=== PATIENT | male | born 1960 | race Hispanic/Latino ===

== ENCOUNTER 2021-05-10 04:44 | Inpatient (IN) | payer BC, OTHER ==
[2021-05-10 05:36] VITALS: BMI 27.0
[2021-05-10] MEDS ORDERED: Nitroglycerin 0.4 MG TAB (25 Tab Bottle) SL PRN (05:36)
[2021-05-10] MEDS ORDERED: Dextrose 50% Abboject 50 ML SYRINGE SLOW IVP PRN (05:45)
[2021-05-10] MEDS ORDERED: Heparin 25,000 units/D5W 500 ML IVPB SCH (05:45)
[2021-05-10] MEDS ORDERED: Heparin 10,000 UNITS/ 10 ML VIAL SLOW IVP SCH (05:45)
[2021-05-10] MEDS ORDERED: Dextrose 5% in Water 1,000 ML IV PRN (05:45)
[2021-05-10 06:20] LABS: #Basophils 0.1 10x3/uL (0.0-0.2); #Eosinphils 0.4 10x3/uL (0.0-0.5); #Monocytes 0.8 10x3/uL (0.0-1.1); %Basophils 0.6 % (0.0-2.0); %Eosinophils 3.9 % (0.0-6.0); %Lymphocytes 35.9 % (18.0-47.0); %Monocytes 8.5 % (0.0-10.0); %Neutrophils 50.7 % (40.0-75.0); Hemoglobin 15.5 g/dL (13.5-17.5); Mean Corpuscular HGB CONC 31.8 g/dL (32.0-36.0); Mean Corpuscular Hemoglobin 26.1 pg (27.0-33.0); Mean Platelet Volume 8.8 fl (7.4-10.4); Platelet Count 241 10x3/uL (150-450); RBC Distribution Width 14.8 % (11.5-14.5); Red Blood Cell (RBC) Count 5.94 10x6/uL (4.32-5.72); White Blood Cell (WBC) Count 9.8 10x3/uL (3.5-10.5)
[2021-05-10 06:37] LABS: Anion Gap 18 mmol/L (10-20); BUN (Urea Nitrogen) 18 mg/dL (8.4-25.7); Calc. Creatinine Clearance 96 mL/min (70-130); Calcium 9.4 mg/dL (7.8-10.44); Carbon Dioxide 19 mmol/L (22-29); Cardiac Risk 3.3 (Less than 4.5); Chloride 108 mmol/L (98-107); Cholesterol 104 mg/dl (< 200 Desired); Glucose 160 mg/dL (70-105); HDL Cholesterol 32 mg/dL (>60 Neg Risk); INR-International Normal Ratio 0.9; LDL Cholesterol, Calculated 24 mg/dL; Magnesium 1.9 mg/dL (1.6-2.6); PTT 24.2 sec (22.0-33.0); Potassium 4.2 mmol/L (3.5-5.1); Prothrombin Time 10.5 sec (9.5-12.1); Sodium 141 mmol/L (136-145); Triglycerides 242 mg/dL (Less than 150)
[2021-05-10] MEDS: Sodium Chloride 0.9% 1,000 ML IV SCH ×2 (06:47→20:20)
[2021-05-10] MEDS: Nitroglycerin 2% Ointment 1 INCH/1 GM Packet TOP SCH ×3 (06:47→18:20)
[2021-05-10 06:49] LABS: Troponin I Less than 0.010 ng/mL (< 0.028)
[2021-05-10] MEDS: Enoxaparin Sodium 40 MG/0.4 ML SYRINGE SC SCH (07:51)
[2021-05-10] MEDS: Lantus 1000 UNITS/10 ML VIAL SC SCH (07:51)
[2021-05-10 08:51] LABS: SARS-CoV-2 NAA Rapid Test Not Detected (NotDetected)
[2021-05-10 09:13] LABS: Troponin I Less than 0.010 ng/mL (< 0.028)
[2021-05-10 09:24] LABS: Hemoglobin A1c 9.9 % (4.0-6.0)
[2021-05-10] MEDS: Carvedilol 3.125 MG TAB PO SCH ×3 (09:34→17:14)
[2021-05-10] MEDS: Clopidogrel Bisulfate 75 MG TAB PO SCH (09:34)
[2021-05-10] MEDS: Aspirin 325 MG TAB PO SCH (09:34)
[2021-05-10] MEDS: HumaLOG 300 UNITS/3 ML VIAL SC PRN ×2 (16:46→20:21)
[2021-05-10] MEDS: Colchicine 0.6 MG TAB PO SCH ×2 (20:20→20:32)
[2021-05-11] MEDS: Nitroglycerin 2% Ointment 1 INCH/1 GM Packet TOP SCH ×5 (00:49→23:20)
[2021-05-11 04:47] LABS: Anion Gap 14 mmol/L (10-20); BUN (Urea Nitrogen) 17 mg/dL (8.4-25.7); Calc. Creatinine Clearance 98 mL/min (70-130); Carbon Dioxide 20 mmol/L (22-29); Chloride 111 mmol/L (98-107); Glucose 116 mg/dL (70-105); Magnesium 2.1 mg/dL (1.6-2.6); Potassium 4.2 mmol/L (3.5-5.1); Sodium 141 mmol/L (136-145)
[2021-05-11] MEDS: Carvedilol 3.125 MG TAB PO SCH ×2 (05:37→16:39)
[2021-05-11] MEDS: Aspirin 325 MG TAB PO SCH (05:37)
[2021-05-11] MEDS: Clopidogrel Bisulfate 75 MG TAB PO SCH (05:37)
[2021-05-11] MEDS: Enoxaparin Sodium 40 MG/0.4 ML SYRINGE SC SCH (09:30)
[2021-05-11] MEDS: Lantus 1000 UNITS/10 ML VIAL SC SCH (09:31)
[2021-05-11] MEDS: Colchicine 0.6 MG TAB PO SCH ×2 (09:42→20:45)
[2021-05-11] MEDS: Sodium Chloride 0.9% 1,000 ML IV SCH ×2 (11:45→22:40)
[2021-05-11] MEDS: HumaLOG 300 UNITS/3 ML VIAL SC PRN ×2 (16:39→20:45)
[2021-05-12 04:59] LABS: Anion Gap 12 mmol/L (10-20); BUN (Urea Nitrogen) 17 mg/dL (8.4-25.7); Calc. Creatinine Clearance 92 mL/min (70-130); Calcium 8.5 mg/dL (7.8-10.44); Carbon Dioxide 22 mmol/L (22-29); Chloride 112 mmol/L (98-107); Glucose 138 mg/dL (70-105); Potassium 4.3 mmol/L (3.5-5.1); Sodium 142 mmol/L (136-145)
[2021-05-12] MEDS: Clopidogrel Bisulfate 75 MG TAB PO SCH (06:33)
[2021-05-12] MEDS: Carvedilol 3.125 MG TAB PO SCH ×2 (06:33→17:50)
[2021-05-12] MEDS: Nitroglycerin 2% Ointment 1 INCH/1 GM Packet TOP SCH ×3 (06:33→17:50)
[2021-05-12] MEDS: Aspirin 325 MG TAB PO SCH (06:33)
[2021-05-12] MEDS: Enoxaparin Sodium 40 MG/0.4 ML SYRINGE SC SCH (09:18)
[2021-05-12] MEDS: Colchicine 0.6 MG TAB PO SCH ×2 (09:18→20:15)
[2021-05-12] MEDS: Lantus 1000 UNITS/10 ML VIAL SC SCH (09:18)
[2021-05-12] MEDS ORDERED: Heparin 10,000 UNITS/ 10 ML VIAL ONE (09:23)
[2021-05-12] MEDS ORDERED: Adenosine 6 MG/2 ML VIAL ONE (09:23)
[2021-05-12] MEDS ORDERED: Nitroglycerin 50 MG/250 ML BOT 250 ML ONE (09:23)
[2021-05-12] MEDS ORDERED: Lidocaine 1% (PF) 30 ML VIAL ONE (09:24)
[2021-05-12] MEDS ORDERED: Fentanyl 100 MCG/2 ML VIAL ONE (09:53)
[2021-05-12] MEDS ORDERED: Midazolam HCl 2 mg/2 ml Vial ONE ×2 (09:53→10:54)
[2021-05-12] MEDS ORDERED: Atropine Sulfate 0.4 mg/1 ml Vial ONE (10:44)
[2021-05-12] MEDS ORDERED: Clopidogrel Bisulfate 300 MG TAB ONE (11:26)
[2021-05-12] MEDS ORDERED: Acetaminophen/Codeine 30-300mg Tablet PO PRN ×2 (11:54)
[2021-05-12] MEDS: Sodium Chloride 0.9% 1,000 ML IV SCH (12:35)
[2021-05-12] MEDS: Morphine 4 MG/ML VIAL SLOW IVP PRN ×2 (12:40→18:50)
[2021-05-12] MEDS ORDERED: Metoprolol Tartrate 5 MG/5 ML VIAL IVP SCH (20:30)
[2021-05-12] MEDS ORDERED: Isosorbide Mononitrate 20 MG TAB PO SCH (20:30)
[2021-05-12] MEDS ORDERED: Amlodipine 5 MG TAB PO SCH (21:45)
[2021-05-13] MEDS: Nitroglycerin 2% Ointment 1 INCH/1 GM Packet TOP SCH ×5 (00:27→23:53)
[2021-05-13 03:17] LABS: #Eosinphils 0.3 10x3/uL (0.0-0.5); #Monocytes 0.7 10x3/uL (0.0-1.1); #Neutrophils 4.9 10x3/uL (1.5-8.4); %Basophils 0.4 % (0.0-2.0); %Eosinophils 3.3 % (0.0-6.0); %Lymphocytes 35.1 % (18.0-47.0); %Monocytes 7.4 % (0.0-10.0); %Neutrophils 53.3 % (40.0-75.0); Hemoglobin 15.4 g/dL (13.5-17.5); Mean Corpuscular HGB CONC 32.2 g/dL (32.0-36.0); Mean Corpuscular Hemoglobin 26.4 pg (27.0-33.0); Mean Corpuscular Volume 81.8 fl (81.2-95.1); Mean Platelet Volume 8.4 fl (7.4-10.4); Platelet Count 198 10x3/uL (150-450); RBC Distribution Width 14.6 % (11.5-14.5); Red Blood Cell (RBC) Count 5.84 10x6/uL (4.32-5.72); White Blood Cell (WBC) Count 9.1 10x3/uL (3.5-10.5)
[2021-05-13 03:35] LABS: ALT (SGPT) 53 U/L (8-55); AST (SGOT) 50 U/L (5-34); Albumin 3.7 g/dL (3.5-5.0); Alkaline Phosphatase 82 U/L (40-110); Anion Gap 14 mmol/L (10-20); BUN (Urea Nitrogen) 11 mg/dL (8.4-25.7); Bilirubin, Total 0.5 mg/dL (0.2-1.2); Calc. Creatinine Clearance 117 mL/min (70-130); Calcium 8.5 mg/dL (7.8-10.44); Carbon Dioxide 19 mmol/L (22-29); Chloride 111 mmol/L (98-107); Globulin 2.8 g/dL (2.4-3.5); Glucose 140 mg/dL (70-105); Magnesium 1.9 mg/dL (1.6-2.6); Potassium 3.8 mmol/L (3.5-5.1); Protein, Total 6.5 g/dL (6.0-8.3); Sodium 140 mmol/L (136-145)
[2021-05-13] MEDS: Lantus 1000 UNITS/10 ML VIAL SC SCH (08:07)
[2021-05-13] MEDS: Enoxaparin Sodium 40 MG/0.4 ML SYRINGE SC SCH (08:07)
[2021-05-13] MEDS: Colchicine 0.6 MG TAB PO SCH ×2 (08:08→20:51)
[2021-05-13] MEDS: Carvedilol 3.125 MG TAB PO SCH ×2 (08:08→17:32)
[2021-05-13] MEDS: Clopidogrel Bisulfate 75 MG TAB PO SCH (08:08)
[2021-05-13] MEDS: Aspirin 325 MG TAB PO SCH (08:08)
[2021-05-13] MEDS: HumaLOG 300 UNITS/3 ML VIAL SC PRN ×3 (12:04→20:52)
[2021-05-13] MEDS: Atorvastatin Calcium 40 MG TAB PO SCH (20:51)
[2021-05-13] MEDS: Gabapentin 300 MG CAP PO SCH (20:51)
[2021-05-14] MEDS: Nitroglycerin 2% Ointment 1 INCH/1 GM Packet TOP SCH ×4 (06:15→23:44)
[2021-05-14] MEDS: Aspirin 325 MG TAB PO SCH (08:58)
[2021-05-14] MEDS: Gabapentin 300 MG CAP PO SCH ×2 (08:58→21:29)
[2021-05-14] MEDS: Enoxaparin Sodium 40 MG/0.4 ML SYRINGE SC SCH (08:58)
[2021-05-14] MEDS: Empagliflozin 25 MG TAB PO SCH (09:00)
[2021-05-14] MEDS: Colchicine 0.6 MG TAB PO SCH ×2 (09:00→21:30)
[2021-05-14] MEDS: Clopidogrel Bisulfate 75 MG TAB PO SCH (09:00)
[2021-05-14] MEDS: Carvedilol 3.125 MG TAB PO SCH ×2 (09:00→17:18)
[2021-05-14] MEDS: Lantus 1000 UNITS/10 ML VIAL SC SCH (09:02)
[2021-05-14] MEDS: Icosapent Ethyl 1 GM CAPSULE PO SCH ×2 (12:03→17:54)
[2021-05-14] MEDS: HumaLOG 300 UNITS/3 ML VIAL SC PRN ×3 (13:00→21:42)
[2021-05-14] MEDS: Atorvastatin Calcium 40 MG TAB PO SCH (21:29)
[2021-05-15] MEDS: Nitroglycerin 2% Ointment 1 INCH/1 GM Packet TOP SCH ×2 (03:23→06:12)
[2021-05-15] MEDS ORDERED: metFORMIN XR 500 MG TAB PO SCH (08:00)
[2021-05-15] MEDS: Colchicine 0.6 MG TAB PO SCH (09:16)
[2021-05-15] MEDS: Clopidogrel Bisulfate 75 MG TAB PO SCH (09:16)
[2021-05-15] MEDS: Gabapentin 300 MG CAP PO SCH (09:16)
[2021-05-15] MEDS: Aspirin 325 MG TAB PO SCH (09:17)
[2021-05-15] MEDS: Carvedilol 3.125 MG TAB PO SCH (09:17)
[2021-05-15] MEDS: Icosapent Ethyl 1 GM CAPSULE PO SCH (09:17)
[2021-05-15] MEDS: Empagliflozin 25 MG TAB PO SCH (09:17)
[2021-05-15] MEDS: Enoxaparin Sodium 40 MG/0.4 ML SYRINGE SC SCH (09:18)
[2021-05-15] MEDS: Lantus 1000 UNITS/10 ML VIAL SC SCH (09:18)
[2021-05-15 12:18] VITALS: BP 101/65; TEMP 98.2
== END 2021-05-15 13:58 | disposition home or self-care (01) | DRG 247 ==
LOC: CSHTELE 04:44 → CSHIMCU 05-12 12:21 → CSHTELE 05-14 03:14
PROVIDERS: ADMIT Family Medicine; ATTEND Internal Medicine
PROC: 027135Z Dilation of Coronary Artery, Two Arteries with Two Drug-eluting Intraluminal Devices, Percutaneous Approach (ICD-10-PCS; principal; 2021-05-12)
PROC: 4A023N7 Measurement of Cardiac Sampling and Pressure, Left Heart, Percutaneous Approach (ICD-10-PCS; 2021-05-12)
PROC: B2111ZZ Fluoroscopy of Multiple Coronary Arteries using Low Osmolar Contrast (ICD-10-PCS; 2021-05-12)
PROC: B2131ZZ Fluoroscopy of Multiple Coronary Artery Bypass Grafts using Low Osmolar Contrast (ICD-10-PCS; 2021-05-12)
PROC: B2151ZZ Fluoroscopy of Left Heart using Low Osmolar Contrast (ICD-10-PCS; 2021-05-12)
DX: I25.10 Atherosclerotic heart disease of native coronary artery without angina pectoris (principal); E11.40 Type 2 diabetes mellitus with diabetic neuropathy, unspecified; I10 Essential (primary) hypertension; K21.9 Gastro-esophageal reflux disease without esophagitis; E11.65 Type 2 diabetes mellitus with hyperglycemia; E78.2 Mixed hyperlipidemia; E11.42 Type 2 diabetes mellitus with diabetic polyneuropathy; E78.00 Pure hypercholesterolemia, unspecified; I65.23 Occlusion and stenosis of bilateral carotid arteries; I25.118 Atherosclerotic heart disease of native coronary artery with other forms of angina pectoris; Z20.822 Contact with and (suspected) exposure to COVID-19; Z87.891 Personal history of nicotine dependence; I25.2 Old myocardial infarction; Z95.1 Presence of aortocoronary bypass graft; Z88.8 Allergy status to other drugs, medicaments and biological substances; Z79.4 Long term (current) use of insulin
CPT/HCPCS: 36415; 36416; 80048; 80053; 80061; 83036; 83735; 84484; 85025; 85610; 85730; 92928; 92978; 93005; 93010; 93306; 93459; 94760; 97139; 99152; 99153; C1753; C1760; C1887; C9600; J0153; J0461; J1644; J1650; J1815; J2001; J2250; J2270; J3010; J7050; U0002

== ENCOUNTER 2021-11-18 20:07 | Observation (INO) | payer BC ==
[~2021-11-18 20:07] MED LIST: Iopamidol 370 76% 100 ML VIAL ONE
[2021-11-18 22:35] LABS: #Basophils 0.1 10x3/uL (0.0-0.2); #Eosinphils 0.6 10x3/uL (0.0-0.5); #Monocytes 0.7 10x3/uL (0.0-1.1); #Neutrophils 3.8 10x3/uL (1.5-8.4); %Basophils 0.7 % (0.0-2.0); %Eosinophils 6.3 % (0.0-6.0); %Monocytes 8.1 % (0.0-10.0); %Neutrophils 43.3 % (40.0-75.0); Hemoglobin 14.7 g/dL (13.5-17.5); Mean Corpuscular HGB CONC 32.7 g/dL (32.0-36.0); Mean Corpuscular Hemoglobin 26.9 pg (27.0-33.0); Mean Corpuscular Volume 82.2 fl (81.2-95.1); Mean Platelet Volume 8.7 fl (7.4-10.4); Platelet Count 227 10x3/uL (150-450); RBC Distribution Width 14.4 % (11.5-14.5); Red Blood Cell (RBC) Count 5.46 10x6/uL (4.32-5.72); White Blood Cell (WBC) Count 8.8 10x3/uL (3.5-10.5)
[2021-11-18 22:44] LABS: INR-International Normal Ratio 0.9; PTT 24.5 sec (22.0-33.0); Prothrombin Time 10.1 sec (9.5-12.1)
[2021-11-18 22:48] LABS: ALT (SGPT) 30 U/L (8-55); AST (SGOT) 20 U/L (5-34); Albumin 4.1 g/dL (3.5-5.0); Alkaline Phosphatase 76 U/L (40-110); Anion Gap 15 mmol/L (10-20); BUN (Urea Nitrogen) 17 mg/dL (8.4-25.7); Bilirubin, Total 0.3 mg/dL (0.2-1.2); Calc. Creatinine Clearance 0 mL/min (70-130); Calcium 8.9 mg/dL (7.8-10.44); Carbon Dioxide 21 mmol/L (22-29); Chloride 108 mmol/L (98-107); Globulin 2.3 g/dL (2.4-3.5); Glucose 133 mg/dL (70-105); Potassium 3.9 mmol/L (3.5-5.1); Protein, Total 6.4 g/dL (6.0-8.3); Sodium 140 mmol/L (136-145)
[2021-11-19] MEDS ORDERED: Aspirin Chewable 81 MG TAB ONE (01:18)
[2021-11-19] MEDS ORDERED: Nitroglycerin 0.4 MG TAB (25 Tab Bottle) SL PRN (02:34)
[2021-11-19] MEDS ORDERED: Sodium Chloride 0.9% 1,000 ML IV SCH (03:00)
[2021-11-19 03:04] VITALS: BMI 27.8
[2021-11-19 05:01] LABS: Cardiac Risk 4.3 (Less than 4.5); Cholesterol 158 mg/dl (< 200 Desired); HDL Cholesterol 37 mg/dL (>60 Neg Risk); LDL Cholesterol, Calculated 64 mg/dL; Magnesium 1.8 mg/dL (1.6-2.6); Triglycerides 285 mg/dL (Less than 150)
[2021-11-19 05:54] LABS: SARS-CoV-2 NAA Rapid Test Not Detected (NotDetected)
[2021-11-19] MEDS ORDERED: Dextrose 50% Abboject 50 ML SYRINGE SLOW IVP PRN (07:35)
[2021-11-19] MEDS ORDERED: HumaLOG 300 UNITS/3 ML VIAL SC PRN ×2 (07:35)
[2021-11-19] MEDS ORDERED: Dextrose 5% in Water 1,000 ML IV PRN (07:35)
[2021-11-19] MEDS ORDERED: Cepastat Lozenges 1 LOZ PO PRN (07:36)
[2021-11-19] MEDS ORDERED: Melatonin 3 MG TAB PO PRN (07:36)
[2021-11-19] MEDS ORDERED: Loratadine 10 MG TAB PO PRN (07:36)
[2021-11-19] MEDS ORDERED: Senokot S 8.6-50 MG TAB PO PRN (07:36)
[2021-11-19] MEDS ORDERED: HYDROcodone/Acetaminophen 5/325 mg Tablet PO PRN (07:36)
[2021-11-19] MEDS ORDERED: Loperamide HCl 2 MG CAP PO PRN (07:36)
[2021-11-19] MEDS ORDERED: hydrALAZINE 20 MG/ML VIAL SLOW IVP PRN (07:36)
[2021-11-19] MEDS ORDERED: Artificial Tear Sol 15 ML BOT EA EYE PRN (07:36)
[2021-11-19] MEDS ORDERED: Calcium Carbonate 500 MG ChewTAB PO PRN (07:36)
[2021-11-19] MEDS ORDERED: Moisturizing Cream (Eucerin) 113 GM JAR TOP PRN (07:36)
[2021-11-19] MEDS ORDERED: Ondansetron PF 4 MG/2 ML Vial IVP PRN (07:36)
[2021-11-19] MEDS ORDERED: guaiFENesin 100 MG/5 ML UDCUP PO PRN (07:42)
[2021-11-19] MEDS ORDERED: metFORMIN XR 500 MG TAB PO SCH (08:00)
[2021-11-19] MEDS: Alogliptin 25 MG TAB PO SCH (08:35)
[2021-11-19] MEDS: Isosorbide Mononitrate 20 MG TAB PO SCH ×2 (08:36→21:59)
[2021-11-19] MEDS: Clopidogrel Bisulfate 75 MG TAB PO SCH (08:36)
[2021-11-19] MEDS: Aspirin 325 MG TAB PO SCH (08:36)
[2021-11-19] MEDS: Empagliflozin 25 MG TAB PO SCH (08:36)
[2021-11-19] MEDS: Carvedilol 3.125 MG TAB PO SCH ×2 (08:36→16:59)
[2021-11-19] MEDS: Enoxaparin Sodium 40 MG/0.4 ML SYRINGE SC SCH (08:38)
[2021-11-19] MEDS: Glimepiride 4 MG TAB PO SCH ×2 (08:38→16:59)
[2021-11-19] MEDS: Ezetimibe 10 MG TAB PO SCH (08:40)
[2021-11-19] MEDS ORDERED: Isosorbide Mononitrate 20 MG TAB PO SCH (09:00)
[2021-11-19] MEDS ORDERED: Non-Formulary Medication 1 EACH (Magnesium Glycinate [Mag Glycinate] 100 MG Tablet) PO SCH (09:00)
[2021-11-19] MEDS ORDERED: Atorvastatin Calcium 40 MG TAB PO SCH ×2 (21:00)
[2021-11-20] MEDS: Ezetimibe 10 MG TAB PO SCH (09:49)
[2021-11-20] MEDS: Carvedilol 3.125 MG TAB PO SCH (09:49)
[2021-11-20] MEDS: Alogliptin 25 MG TAB PO SCH (09:49)
[2021-11-20] MEDS: Aspirin 325 MG TAB PO SCH (09:50)
[2021-11-20] MEDS: Empagliflozin 25 MG TAB PO SCH (09:50)
[2021-11-20] MEDS: Clopidogrel Bisulfate 75 MG TAB PO SCH (09:50)
[2021-11-20] MEDS: Glimepiride 4 MG TAB PO SCH (09:50)
[2021-11-20] MEDS: Enoxaparin Sodium 40 MG/0.4 ML SYRINGE SC SCH (09:50)
[2021-11-20 10:12] LABS: Anion Gap 15 mmol/L (10-20); BUN (Urea Nitrogen) 17 mg/dL (8.4-25.7); Calc. Creatinine Clearance 101 mL/min (70-130); Calcium 9.5 mg/dL (7.8-10.44); Carbon Dioxide 23 mmol/L (22-29); Chloride 105 mmol/L (98-107); Glucose 215 mg/dL (70-105); Potassium 4.6 mmol/L (3.5-5.1); Sodium 138 mmol/L (136-145)
[2021-11-20] MEDS: Isosorbide Mononitrate 20 MG TAB PO SCH (10:45)
[2021-11-20 12:09] VITALS: BP 141/75; TEMP 97
== END 2021-11-20 14:24 | disposition home or self-care (01) ==
LOC: CSHERS 20:07 → CSHTELE 11-19 02:31
PROVIDERS: ADMIT Family Medicine; ATTEND Physician Assistant
DX: R42 Dizziness and giddiness (principal); M54.2 Cervicalgia; I65.23 Occlusion and stenosis of bilateral carotid arteries; I25.10 Atherosclerotic heart disease of native coronary artery without angina pectoris; E11.42 Type 2 diabetes mellitus with diabetic polyneuropathy; I10 Essential (primary) hypertension; K21.9 Gastro-esophageal reflux disease without esophagitis; E78.5 Hyperlipidemia, unspecified; I25.2 Old myocardial infarction; Z79.82 Long term (current) use of aspirin; Z79.84 Long term (current) use of oral hypoglycemic drugs; Z86.16 Personal history of COVID-19; Z95.1 Presence of aortocoronary bypass graft; Z87.891 Personal history of nicotine dependence; F10.21 Alcohol dependence, in remission; Z88.8 Allergy status to other drugs, medicaments and biological substances
CPT/HCPCS: 36415; 36416; 70450; 70496; 70498; 70551; 80048; 80053; 80061; 83735; 84484; 85025; 85610; 85730; 93005; 94760; 96372; G0378; J1650; J1815; J7050; Q9967; U0002